=== PATIENT | male | born 1940 | race Caucasian/White ===

== ENCOUNTER 2018-05-03 21:32 | Emergency (ER) | payer MEDICARE ==
[~2018-05-03] VITALS: Ht 180.3 cm; Wt 90.0 kg
[2018-05-03 23:57] VITALS: BP 138/70
== END 2018-05-04 00:09 | disposition home or self-care (01) ==
LOC: ED 21:59
DX: F10.220 Alcohol dependence with intoxication, uncomplicated (principal)
CPT/HCPCS: 99283